=== PATIENT | female | born 1970 | race Caucasian/White ===

== ENCOUNTER 2020-02-08 15:52 | Emergency (ER) | payer MEDICARE, OTHER ==
[~2020-02-08] VITALS: Ht 165.1 cm; Wt 86.2 kg
[~2020-02-08 15:52] MED LIST: HYDR-4354 PO; QUET25TA PO
--- NOTE | 2020-02-08 16:16 | NUR ---
PT AMBULATORY TO ER BED 10 C/O R HIP AND R 5TH FINGER PAIN S/P SLIP AND FALL LAST NIGHT. DENIES HEAD INJURY. STABLE VITALS. AWAITING MD MEZA.
--- NOTE | 2020-02-08 16:27 | NUR ---
[place] JOYNER AT BEDSIDE FOR EVAL.
[2020-02-08] MEDS ORDERED: KETOROLAC TROMETHAMINE INJ 60 MG/2 ML VIAL IM ONE (16:30)
[2020-02-08] MEDS ORDERED: HYDROCODONE/APAP 5/325MG 1 EACH TABLET PO ONE (16:30)
[2020-02-08] MEDS ORDERED: KETOROLAC TROMETHAMINE INJ 30 MG/ML VIAL ONE (16:53)
[2020-02-08] MEDS ORDERED: HYDROCODONE/APAP 5/325MG 1 EACH TABLET ONE (16:53)
--- NOTE | 2020-02-08 17:03 | NUR ---
RADIOLOGY AT BEDSIDE FOR R HAND AND R HIP XRAY.
[2020-02-08] MEDS ORDERED: MORPHINE SULFATE INJ 2 MG/ML DISP.SYRIN ONE (17:48)
[2020-02-08] MEDS ORDERED: MORPHINE SULFATE INJ 2 MG/ML DISP.SYRIN IM ONE (18:00)
[2020-02-08 18:24] VITALS: BP 118/77
--- NOTE | 2020-02-08 18:24 | NUR ---
Patient discharged to home in stable condition. Written and verbal after care instructions given. Patient verbalizes understanding of instruction.
== END 2020-02-08 18:35 | disposition home or self-care (01) ==
LOC: ER 15:54
DX: S62.636A Displaced fracture of distal phalanx of right little finger, initial encounter for closed fracture (principal); M25.551 Pain in right hip; I10 Essential (primary) hypertension; R00.0 Tachycardia, unspecified; J44.9 Chronic obstructive pulmonary disease, unspecified; M54.9 Dorsalgia, unspecified; G89.29 Other chronic pain; Z90.710 Acquired absence of both cervix and uterus; Z88.8 Allergy status to other drugs, medicaments and biological substances; Z88.5 Allergy status to narcotic agent; Z79.899 Other long term (current) drug therapy; W18.39XA Other fall on same level, initial encounter; Y93.89 Activity, other specified; Y92.89 Other specified places as the place of occurrence of the external cause; Y99.8 Other external cause status
CPT/HCPCS: 29130; 73140; 73502; 96372 ×2; 99284; J1885; J2270